=== PATIENT | female | born 1985 | race Hispanic/Latino ===

== ENCOUNTER 2017-06-18 09:06 | Outpatient (CLI) | payer MEDICAID ==
--- NOTE | 2017-06-18 11:47 | ULT ---
PELVIC ULTRASOUND: Technique: Transabdominal and endovaginal ultrasound of the pelvis performed. History: Pelvic pain. FINDINGS: The uterus is mildly prominent in size with measures recorded at 8.1 x 5.0 x 3.5 cm. Endometrial stripe is within normal range measured at 4-6 mm. Both ovaries are identified. Color doppler with spectral analysis demonstrates flow to both ovaries. Small follicular cyst in the right ovary measures up to 1.0 cm. No free fluid is seen. IMPRESSION: Unremarkable pelvic ultrasound. POS: [id number]
== END 2017-06-18 09:07 | disposition home or self-care (01) ==
LOC: MADULT 09:06
PROVIDERS: ATTEND Family Medicine
DX: R10.2 Pelvic and perineal pain (principal)
CPT/HCPCS: 76856

== ENCOUNTER 2018-02-24 07:57 | Outpatient (CLI) | payer MEDICAID ==
--- NOTE | 2018-02-24 10:07 | ULT ---
PELVIS ULTRASOUND: HISTORY: Lower pelvic pain for months. COMPARISON: 06/18/2017 TECHNIQUE: Multiplanar leo-scale and color Doppler images were obtained in a transabdominal and transvaginal pe lvic ultrasound. Spectral analysis and Doppler waveforms of the ovaries was performed. FINDINGS: A nabothian cyst is seen in the cervix. The uterus is normal in size and appearance without focal ab normality. The endometrial stripe is at the upper limits of normal in thickness, measuring 11 mm. No free fluid is seen in the pelvis. Both ovaries are normal in size and appearance and demonstrate normal internal flow. IMPRESSION: Nabothian cysts; otherwise, unremarkable examination. POS: [facility]
== END 2018-02-24 07:58 | disposition home or self-care (01) ==
LOC: MADULT 07:57
PROVIDERS: ATTEND Family Medicine
DX: R10.2 Pelvic and perineal pain (principal); N88.8 Other specified noninflammatory disorders of cervix uteri
CPT/HCPCS: 76856

== ENCOUNTER 2021-06-17 11:59 | Emergency (ER) | payer SELFPAY ==
[2021-06-17] MEDS ORDERED: Lidocaine 4% Cream 5 GM TUBE w/ Tegaderm ONE (12:17)
[2021-06-17] MEDS ORDERED: Lidocaine 1% w/Epinephrine 1:100K 20 ML VIAL ONE (12:18)
[2021-06-17] MEDS ORDERED: Boostrix 0.5 ML (Tdap) VIAL ONE (12:47)
[2021-06-17] MEDS ORDERED: Bacitracin 1 PK ONE (13:50)
[2021-06-17] MEDS ORDERED: Ondansetron ODT 4 MG TAB ONE (14:24)
[2021-06-17] MEDS ORDERED: Cephalexin 500 MG CAP ONE (14:24)
== END 2021-06-17 14:40 | disposition home or self-care (01) ==
LOC: MADERS 11:59
DX: S06.0X0A Concussion without loss of consciousness, initial encounter (principal); S01.81XA Laceration without foreign body of other part of head, initial encounter; S05.12XA Contusion of eyeball and orbital tissues, left eye, initial encounter; W19.XXXA Unspecified fall, initial encounter
CPT/HCPCS: 12014; 70450; 70486; 90471; 90715; Q0162

== ENCOUNTER 2022-12-19 10:35 | Emergency (ER) | payer MEDICAID, SELFPAY ==
[~2022-12-19 10:35] MED LIST: Iopamidol 370 76% 100 ML VIAL ONE
[2022-12-19] MEDS ORDERED: Sodium Chloride 0.9% 1,000 ML ONE (11:57)
[2022-12-19] MEDS ORDERED: Ketorolac Tromethamine 30 MG/ML VIAL ONE (11:57)
[2022-12-19] MEDS ORDERED: Acetaminophen 325 MG TAB ONE (11:57)
[2022-12-19] MEDS ORDERED: Boostrix 0.5 ML (Tdap) VIAL (>/=7 yrs of age) ONE (11:58)
[2022-12-19 12:27] LABS: #Lymphocytes 1.7 thou/uL (1.20-3.40); #Monocytes 0.3 thou/uL (0.11-0.59); #Neutrophils 3.3 thou/uL (1.40-6.50); %Basophils 0.6 % (0.0-1.0); %Eosinophils 0.8 % (0.0-10.0); %Lymphocytes 31.8 % (21.0-51.0); %Neutrophils 60.8 % (42.0-75.0); Hemoglobin 12.7 g/dL (12.0-16.0); Mean Corpuscular HGB CONC 33.4 g/dL (32.0-36.0); Mean Corpuscular Hemoglobin 31.2 pg (27.0-31.0); Mean Corpuscular Volume 93.5 fl (78.0-98.0); Mean Platelet Volume 9.8 fL (7.4-10.4); Platelet Count 235 10x3/uL (130-400); Red Blood Cell (RBC) Count 4.07 mill/uL (4.20-5.40); White Blood Cell (WBC) Count 5.4 10x3/uL (4.8-10.8)
[2022-12-19 12:39] LABS: BHCG - Serum Negative (NEGATIVE); PTT 31.6 sec (22.9-36.1); Pregs Control Background? CLEAR/WHITE (CLR/WHITE); Pregs Control Bar Appear? YES (CONTROL BAR)
[2022-12-19 12:51] LABS: ALT (SGPT) 27 U/L (8-55); AST (SGOT) 27 U/L (5-34); Alkaline Phosphatase 61 U/L (40-110); Anion Gap 10 mmol/L (10-20); BUN (Urea Nitrogen) 9 mg/dL (7.0-18.7); Bilirubin, Total 0.4 mg/dL (0.2-1.2); Calc. Creatinine Clearance 0 mL/min (70-130); Calcium 8.6 mg/dL (7.8-10.44); Carbon Dioxide 26 mmol/L (22-29); Chloride 104 mmol/L (98-107); Estimated GFR 117; Globulin 3.1 g/dL (2.4-3.5); Glucose 89 mg/dL (70-105); Lipase 5 U/L (8-78); Potassium 4.4 mmol/L (3.5-5.1); Protein, Total 7.1 g/dL (6.0-8.3); Sodium 136 mmol/L (136-145)
[2022-12-19 13:10] LABS: Bilirubin Negative (Negative); Blood, Urine Negative (Negative); Glucose, Urine (Dipstick) Negative (Negative); Ketone, Urine Trace mg/dL (Negative); Leukocyte Negative (Negative); Nitrite Negative (Negative); Protein, Urine (Dipstick) Negative (Neg-Trace); Specific Gravity, Urine 1.015 (1.005-1.030); Urobilinogen 0.2 mg/dL (Less than 2)
[2022-12-19 13:11] LABS: Clarity Hazy (Clear)
[2022-12-19 13:18] LABS: Bacteria/HPF Rare-Few HPF (None Seen); CAUTI Indications for Culture Pelvic or flank pain; RBC/HPF 0-3 HPF (0-3); WBC/HPF 0-3 HPF (0-3)
[2022-12-19 13:19] LABS: Urine Culture Reflex No No
== END 2022-12-19 14:40 | disposition home or self-care (01) ==
LOC: MADERS 10:35
DX: S20.212A Contusion of left front wall of thorax, initial encounter (principal); S13.4XXA Sprain of ligaments of cervical spine, initial encounter; S83.92XA Sprain of unspecified site of left knee, initial encounter; S80.211A Abrasion, right knee, initial encounter; W17.89XA Other fall from one level to another, initial encounter; Z23 Encounter for immunization
CPT/HCPCS: 36415; 70450; 71260; 72125; 74177; 80053; 81001; 83690; 84484; 84703; 85025; 85610; 85730; 90715; 93005; 94760; 96374; J1885; J7050; Q9967